=== PATIENT | male | born 1940 | race Caucasian/White ===

== ENCOUNTER 2021-12-11 07:01 | Inpatient (IN) | payer BC, MEDICARE ==
[2021-12-11] MEDS ORDERED: Fentanyl 100 MCG/2 ML VIAL ONE (07:24)
[2021-12-11 08:00] LABS: Hemoglobin 11.8 g/dL (14.0-18.0); Mean Corpuscular HGB CONC 32.1 g/dL (32.0-36.0); Mean Corpuscular Hemoglobin 36.4 pg (27.0-31.0); Mean Platelet Volume 7.1 fL (7.4-10.4); Platelet Count 422 thou/uL (130-400); RBC Distribution Width 12.5 % (11.5-14.5); Red Blood Cell (RBC) Count 3.23 mill/uL (4.70-6.10); White Blood Cell (WBC) Count 16.9 thou/uL (4.8-10.8)
[2021-12-11 08:18] LABS: ALT (SGPT) 15 U/L (8-55); AST (SGOT) 28 U/L (5-34); Albumin 3.9 g/dL (3.4-4.8); Alkaline Phosphatase 86 U/L (40-110); Anion Gap 30 mmol/L (10-20); BUN (Urea Nitrogen) 70 mg/dL (8.4-25.7); Bilirubin, Total 0.4 mg/dL (0.2-1.2); CK (CPK) 297 U/L (30-200); Calc. Creatinine Clearance 0 mL/min (70-130); Calcium 10.1 mg/dL (7.8-10.44); Carbon Dioxide 23 mmol/L (23-31); Chloride 86 mmol/L (98-107); Globulin 4.4 g/dL (2.4-3.5); Glucose 152 mg/dL (83-110); Lipase Less than 4 U/L (8-78); Potassium 4.6 mmol/L (3.5-5.1); Protein, Total 8.3 g/dL (5.8-8.1); Sodium 134 mmol/L (136-145)
[2021-12-11 08:20] LABS: Band 37 % (5-11); Lymphocytes 1 % (21-51); MDiff Complete? YES; Macrocytosis SLIGHT = 6-15 cells (100X) (0-5/hpf); Monocytes 4 % (0-10); Neutrophil 56 % (42-75); Platelet Morphology Comment Appears Increased; Polychromasia SLIGHT = 2-3 cells (100X) (0-2/hpf); Reactive Lymphocytes 2 % (0-10)
[2021-12-11] MEDS ORDERED: Cefepime 2 GM VIAL ONE (08:35)
[2021-12-11 08:42] LABS: CKMB 8.2 ng/mL (0-6.6)
[2021-12-11] MEDS ORDERED: Acetaminophen 325 MG TAB PO PRN (09:58)
[2021-12-11] MEDS ORDERED: Calcium Carbonate 500 MG ChewTAB PO PRN (09:58)
[2021-12-11] MEDS ORDERED: Morphine 2 MG/ML VIAL SLOW IVP PRN (10:02)
[2021-12-11 10:16] LABS: HBSAg Index 0.18 S/CO (0-0.99); Hep B Surf Ag Non-Reactive S/CO (NonReactive)
[2021-12-11] MEDS ORDERED: Acetaminophen 500 MG TAB ONE (10:43)
[2021-12-11] MEDS ORDERED: Iopamidol-370 76% 500 ML 1 ML ONE (10:46)
[2021-12-11 11:27] LABS: SARS-CoV-2 NAA Rapid Test Not Detected (NotDetected)
[2021-12-11 15:26] LABS: Troponin I 0.055 ng/mL (< 0.028)
[2021-12-11] MEDS: Ketorolac Tromethamine 30 MG/ML VIAL IVP SCH (15:58)
[2021-12-11] MEDS: Albumin 25% 25 GM/100 ML BOT IVPB SCH ×3 (15:58→21:32)
[2021-12-11] MEDS: Lidocaine 5% Patch TD SCH (15:58)
[2021-12-11] MEDS: Hydrocortisone Sod Succ/PF 100 mg/2 ml Vial IVP SCH ×2 (15:59→21:31)
[2021-12-11 16:13] VITALS: BMI 29.0
[2021-12-11] MEDS ORDERED: Vancomycin Diaylsis Sliding Scale (Wt 71-99) FS SCH (17:15)
[2021-12-11] MEDS ORDERED: Gabapentin 300 MG CAP PO SCH (17:15)
[2021-12-11 17:41] LABS: Troponin I 0.065 ng/mL (< 0.028)
[2021-12-11] MEDS ORDERED: Vancomycin 1 GM in Premix Bag 1 BAG IVPB SCH (21:00)
[2021-12-11] MEDS: Transdermal Patch Removal TOP SCH (23:49)
[2021-12-12 03:56] LABS: Anion Gap 28 mmol/L (10-20); BUN (Urea Nitrogen) 82 mg/dL (8.4-25.7); Calc. Creatinine Clearance 13 mL/min (70-130); Calcium 9.8 mg/dL (7.8-10.44); Carbon Dioxide 23 mmol/L (23-31); Chloride 90 mmol/L (98-107); Glucose 144 mg/dL (83-110); Potassium 4.3 mmol/L (3.5-5.1); Sodium 137 mmol/L (136-145)
[2021-12-12 04:04] LABS: Band 36 % (5-11); Hemoglobin 10.6 g/dL (14.0-18.0); Lymphocytes 8 % (21-51); MDiff Complete? YES; Mean Corpuscular HGB CONC 32.3 g/dL (32.0-36.0); Mean Corpuscular Hemoglobin 36.3 pg (27.0-31.0); Mean Platelet Volume 6.6 fL (7.4-10.4); Monocytes 2 % (0-10); Neutrophil 54 % (42-75); Platelet Count 387 thou/uL (130-400); RBC Distribution Width 12.4 % (11.5-14.5); Red Blood Cell (RBC) Count 2.92 mill/uL (4.70-6.10)
[2021-12-12] MEDS: Albumin 25% 25 GM/100 ML BOT IVPB SCH ×2 (04:53→08:45)
[2021-12-12] MEDS: Hydrocortisone Sod Succ/PF 100 mg/2 ml Vial IVP SCH ×3 (06:31→20:44)
[2021-12-12] MEDS: guaiFENesin ER 600 MG TAB PO SCH ×2 (08:45→20:42)
[2021-12-12] MEDS: Gabapentin 100 MG CAP PO SCH ×2 (08:46→20:41)
[2021-12-12] MEDS: HYDROcodone/Acetaminophen 5/325 mg Tablet PO PRN (08:47)
[2021-12-12] MEDS ORDERED: Gabapentin 300 MG CAP PO SCH (09:00)
[2021-12-12] MEDS ORDERED: Cefepime 1 GM in Sodium Chloride 0.9% 100 ML IVPB SCH (09:00)
[2021-12-12] MEDS ORDERED: Fleet Enema 133 ML BOT PR SCH (09:00)
[2021-12-12] MEDS ORDERED: Piperacillin/Tazobactam 3.375 GM in Sodium Chloride 0.9% 100 ML IVPB SCH (09:30)
[2021-12-12] MEDS: Piperacillin/Tazobactam 3.375 GM in Sodium Chloride 0.9% 100 ML IVPB SCH (09:43)
[2021-12-12] MEDS: Polyethylene Glycol 3350 17 GM Packet PO SCH (09:43)
[2021-12-12 10:39] LABS: Vancomycin, Random 21.3 ug/mL (See Comment)
[2021-12-12 10:41] LABS: ALT (SGPT) 20 U/L (8-55); AST (SGOT) 30 U/L (5-34); Albumin 4.1 g/dL (3.4-4.8); Alkaline Phosphatase 79 U/L (40-110); Bilirubin, Direct 0.3 mg/dL (0.1-0.3); Bilirubin, Total 0.5 mg/dL (0.2-1.2); Protein, Total 7.8 g/dL (5.8-8.1)
[2021-12-12] MEDS: Lidocaine 5% Patch TD SCH (12:49)
[2021-12-12] MEDS: Ketorolac Tromethamine 30 MG/ML VIAL IVP SCH (12:59)
[2021-12-12] MEDS: Acetylcysteine 10% 100 MG/ML 30 ml Vial INH SCH ×2 (14:36→21:23)
[2021-12-13] MEDS: Transdermal Patch Removal TOP SCH ×2 (01:01→22:09)
[2021-12-13] MEDS: Piperacillin/Tazobactam 3.375 GM in Sodium Chloride 0.9% 100 ML IVPB SCH ×2 (01:08→16:46)
[2021-12-13] MEDS: Acetylcysteine 10% 100 MG/ML 30 ml Vial INH SCH ×5 (02:18→23:45)
[2021-12-13] MEDS: Hydrocortisone Sod Succ/PF 100 mg/2 ml Vial IVP SCH ×3 (05:45→21:33)
[2021-12-13] MEDS: Polyethylene Glycol 3350 17 GM Packet PO SCH (10:00)
[2021-12-13] MEDS: Gabapentin 100 MG CAP PO SCH ×2 (10:01→21:32)
[2021-12-13] MEDS: guaiFENesin ER 600 MG TAB PO SCH ×2 (10:02→21:33)
[2021-12-13] MEDS: Lidocaine 5% Patch TD SCH (10:03)
[2021-12-13] MEDS ORDERED: Hydrocortisone Sod Succ/PF 100 mg/2 ml Vial IVP SCH (16:00)
[2021-12-13] MEDS: HYDROcodone/Acetaminophen 5/325 mg Tablet PO PRN (21:33)
[2021-12-14] MEDS: Piperacillin/Tazobactam 3.375 GM in Sodium Chloride 0.9% 100 ML IVPB SCH (02:32)
[2021-12-14] MEDS: Hydrocortisone Sod Succ/PF 100 mg/2 ml Vial IVP SCH (05:09)
[2021-12-14] MEDS: Polyethylene Glycol 3350 17 GM Packet PO SCH (07:03)
[2021-12-14 07:04] LABS: Hemoglobin 10.4 g/dL (14.0-18.0); Mean Corpuscular HGB CONC 32.1 g/dL (32.0-36.0); Mean Corpuscular Hemoglobin 36.2 pg (27.0-31.0); Mean Platelet Volume 6.1 fL (7.4-10.4); Platelet Count 372 thou/uL (130-400); RBC Distribution Width 12.2 % (11.5-14.5); Red Blood Cell (RBC) Count 2.89 mill/uL (4.70-6.10)
[2021-12-14 07:15] LABS: Vancomycin, Random 14.5 ug/mL (See Comment)
[2021-12-14] MEDS: Acetylcysteine 10% 100 MG/ML 30 ml Vial INH SCH ×3 (07:15→19:21)
[2021-12-14 07:19] LABS: ALT (SGPT) 26 U/L (8-55); AST (SGOT) 43 U/L (5-34); Alkaline Phosphatase 78 U/L (40-110); Anion Gap 25 mmol/L (10-20); BUN (Urea Nitrogen) 77 mg/dL (8.4-25.7); Bilirubin, Total 0.6 mg/dL (0.2-1.2); Calc. Creatinine Clearance 15 mL/min (70-130); Calcium 9.3 mg/dL (7.8-10.44); Carbon Dioxide 23 mmol/L (23-31); Chloride 87 mmol/L (98-107); Globulin 3.6 g/dL (2.4-3.5); Glucose 123 mg/dL (83-110); Potassium 4.3 mmol/L (3.5-5.1); Protein, Total 7.6 g/dL (5.8-8.1); Sodium 131 mmol/L (136-145)
[2021-12-14 08:14] LABS: Band 22 % (5-11); Lymphocytes 5 % (21-51); MDiff Complete? YES; Macrocytosis MODERATE=16-30 cells (100X) (0-5/hpf); Monocytes 3 % (0-10); Neutrophil 69 % (42-75); Platelet Morphology Comment Appears Adequate; Polychromasia SLIGHT = 2-3 cells (100X) (0-2/hpf); Reactive Lymphocytes 1 % (0-10)
[2021-12-14] MEDS: HYDROcodone/Acetaminophen 5/325 mg Tablet PO PRN ×3 (08:15→23:31)
[2021-12-14] MEDS: Midodrine HCl 5 MG TAB PO SCH (08:16)
[2021-12-14] MEDS: Gabapentin 100 MG CAP PO SCH ×2 (08:16→20:57)
[2021-12-14] MEDS: guaiFENesin ER 600 MG TAB PO SCH ×2 (08:16→20:57)
[2021-12-14] MEDS ORDERED: Doxycycline 100 MG in Sodium Chloride 0.9% 100 ML IVPB SCH ×2 (09:00→13:45)
[2021-12-14] MEDS ORDERED: predniSONE 20 MG TAB PO SCH (09:00)
[2021-12-14] MEDS ORDERED: cefTRIAXone\\ROCEPHIN 1 GM in Sodium Chloride 0.9% 100 ML IVPB SCH ×2 (09:00→16:00)
[2021-12-14] MEDS: Lidocaine 5% Patch TD SCH (09:31)
[2021-12-14] MEDS ORDERED: Pantoprazole 40 MG VIAL IVP SCH (13:30)
[2021-12-14] MEDS ORDERED: Vancomycin HCl 750 MG in Sodium Chloride 0.9% 250 ML 250 ML IVPB SCH (17:00)
[2021-12-14] MEDS: Morphine 2 MG/ML VIAL SLOW IVP PRN (20:58)
[2021-12-14] MEDS: Doxycycline 100 MG in Sodium Chloride 0.9% 100 ML IVPB SCH (20:58)
[2021-12-14] MEDS ORDERED: Doxycycline 100 MG CAP PO SCH (21:00)
[2021-12-14] MEDS: Transdermal Patch Removal TOP SCH (21:17)
[2021-12-15] MEDS: Acetylcysteine 10% 100 MG/ML 30 ml Vial INH SCH ×3 (01:40→14:22)
[2021-12-15 06:12] LABS: Hemoglobin 10.9 g/dL (14.0-18.0); Mean Corpuscular HGB CONC 31.6 g/dL (32.0-36.0); Mean Corpuscular Hemoglobin 35.5 pg (27.0-31.0); Mean Platelet Volume 6.5 fL (7.4-10.4); Platelet Count 425 thou/uL (130-400); RBC Distribution Width 12.4 % (11.5-14.5); Red Blood Cell (RBC) Count 3.07 mill/uL (4.70-6.10); White Blood Cell (WBC) Count 15.9 thou/uL (4.8-10.8)
[2021-12-15 06:28] LABS: Band 8 % (5-11); Lymphocytes 10 % (21-51); MDiff Complete? YES; Macrocytosis SLIGHT = 6-15 cells (100X) (0-5/hpf); Monocytes 3 % (0-10); Myelocyte 2 % (0-0); Neutrophil 77 % (42-75)
[2021-12-15 06:42] LABS: ALT (SGPT) 31 U/L (8-55); AST (SGOT) 43 U/L (5-34); Albumin 4.1 g/dL (3.4-4.8); Alkaline Phosphatase 86 U/L (40-110); Anion Gap 25 mmol/L (10-20); BUN (Urea Nitrogen) 72 mg/dL (8.4-25.7); Bilirubin, Total 0.5 mg/dL (0.2-1.2); Calc. Creatinine Clearance 16 mL/min (70-130); Calcium 9.6 mg/dL (7.8-10.44); Carbon Dioxide 25 mmol/L (23-31); Chloride 89 mmol/L (98-107); Globulin 3.8 g/dL (2.4-3.5); Glucose 108 mg/dL (83-110); Potassium 4.6 mmol/L (3.5-5.1); Protein, Total 7.9 g/dL (5.8-8.1); Sodium 134 mmol/L (136-145)
[2021-12-15] MEDS: Pantoprazole 40 MG VIAL IVP SCH (08:04)
[2021-12-15] MEDS: predniSONE 20 MG TAB PO SCH (08:04)
[2021-12-15] MEDS: Gabapentin 100 MG CAP PO SCH ×2 (08:04→20:26)
[2021-12-15] MEDS: Doxycycline 100 MG in Sodium Chloride 0.9% 100 ML IVPB SCH (08:04)
[2021-12-15] MEDS: guaiFENesin ER 600 MG TAB PO SCH ×2 (08:05→20:26)
[2021-12-15] MEDS: Polyethylene Glycol 3350 17 GM Packet PO SCH (08:05)
[2021-12-15] MEDS: HYDROcodone/Acetaminophen 5/325 mg Tablet PO PRN ×2 (11:47→17:31)
[2021-12-15] MEDS: Lidocaine 5% Patch TD SCH (11:47)
[2021-12-15] MEDS ORDERED: Piperacillin/Tazobactam 3.375 GM in Sodium Chloride 0.9% 100 ML IVPB SCH ×2 (14:30→14:45)
[2021-12-15] MEDS: Piperacillin/Tazobactam 3.375 GM in Sodium Chloride 0.9% 100 ML IVPB SCH (20:26)
[2021-12-15] MEDS: Transdermal Patch Removal TOP SCH (23:30)
[2021-12-16] MEDS: Morphine 2 MG/ML VIAL SLOW IVP PRN (00:53)
[2021-12-16 07:19] LABS: Hemoglobin 10.9 g/dL (14.0-18.0); Mean Corpuscular HGB CONC 33.5 g/dL (32.0-36.0); Mean Corpuscular Hemoglobin 37.8 pg (27.0-31.0); Mean Platelet Volume 6.5 fL (7.4-10.4); Platelet Count 401 thou/uL (130-400); Red Blood Cell (RBC) Count 2.89 mill/uL (4.70-6.10); White Blood Cell (WBC) Count 18.7 thou/uL (4.8-10.8)
[2021-12-16 07:41] LABS: ALT (SGPT) 27 U/L (8-55); AST (SGOT) 32 U/L (5-34); Albumin 3.9 g/dL (3.4-4.8); Alkaline Phosphatase 84 U/L (40-110); Anion Gap 27 mmol/L (10-20); BUN (Urea Nitrogen) 97 mg/dL (8.4-25.7); Bilirubin, Total 0.6 mg/dL (0.2-1.2); Calc. Creatinine Clearance 13 mL/min (70-130); Calcium 9.3 mg/dL (7.8-10.44); Carbon Dioxide 23 mmol/L (23-31); Chloride 88 mmol/L (98-107); Globulin 3.5 g/dL (2.4-3.5); Glucose 103 mg/dL (83-110); Potassium 4.7 mmol/L (3.5-5.1); Protein, Total 7.4 g/dL (5.8-8.1); Sodium 133 mmol/L (136-145)
[2021-12-16 08:06] LABS: Band 11 % (5-11); Lymphocytes 10 % (21-51); MDiff Complete? YES; Metamyelocyte 3 % (0-0); Monocytes 7 % (0-10); Myelocyte 1 % (0-0); Neutrophil 68 % (42-75); Platelet Morphology Comment Appears Increased; RBC Morphology Normal
[2021-12-16] MEDS ORDERED: Morphine 2 MG/ML VIAL SLOW IVP PRN (08:19)
[2021-12-16] MEDS ORDERED: Morphine 4 MG/ML VIAL SLOW IVP PRN (08:23)
[2021-12-16] MEDS ORDERED: Fleet Enema 133 ML BOT PR SCH (09:45)
[2021-12-16] MEDS ORDERED: Magnesium Citrate 300 ML BOT PO SCH (09:45)
[2021-12-16] MEDS: Piperacillin/Tazobactam 3.375 GM in Sodium Chloride 0.9% 100 ML IVPB SCH ×2 (10:12→20:25)
[2021-12-16] MEDS: guaiFENesin ER 600 MG TAB PO SCH ×2 (10:12→20:25)
[2021-12-16] MEDS: Gabapentin 100 MG CAP PO SCH ×2 (10:12→20:25)
[2021-12-16] MEDS ORDERED: Albumin 25% 100 ML ONE (11:35)
[2021-12-16] MEDS: Midodrine HCl 5 MG TAB PO SCH (11:39)
[2021-12-16] MEDS: Lidocaine 5% Patch TD SCH (14:31)
[2021-12-16] MEDS: predniSONE 20 MG TAB PO SCH (14:32)
[2021-12-16] MEDS: Pantoprazole 40 MG VIAL IVP SCH (14:32)
[2021-12-16] MEDS: Polyethylene Glycol 3350 17 GM Packet PO SCH ×2 (14:45→19:33)
[2021-12-16] MEDS: Transdermal Patch Removal TOP SCH (23:57)
[2021-12-17 06:51] LABS: ALT (SGPT) 27 U/L (8-55); AST (SGOT) 29 U/L (5-34); Albumin 4.1 g/dL (3.4-4.8); Alkaline Phosphatase 88 U/L (40-110); Anion Gap 26 mmol/L (10-20); BUN (Urea Nitrogen) 69 mg/dL (8.4-25.7); Bilirubin, Total 0.7 mg/dL (0.2-1.2); Calc. Creatinine Clearance 18 mL/min (70-130); Calcium 9.5 mg/dL (7.8-10.44); Carbon Dioxide 23 mmol/L (23-31); Chloride 91 mmol/L (98-107); Globulin 3.9 g/dL (2.4-3.5); Glucose 160 mg/dL (83-110); Potassium 4.8 mmol/L (3.5-5.1); Sodium 135 mmol/L (136-145)
[2021-12-17 06:54] LABS: Band 11 % (5-11); Hemoglobin 11.1 g/dL (14.0-18.0); Hypochromia SLIGHT = 6-15 cells (100X) (0-5/hpf); Lymphocytes 13 % (21-51); MDiff Complete? YES; Macrocytosis SLIGHT = 6-15 cells (100X) (0-5/hpf); Mean Corpuscular HGB CONC 31.8 g/dL (32.0-36.0); Mean Corpuscular Hemoglobin 35.9 pg (27.0-31.0); Mean Platelet Volume 6.7 fL (7.4-10.4); Monocytes 2 % (0-10); Neutrophil 73 % (42-75); Platelet Count 474 thou/uL (130-400); Platelet Morphology Comment Appears Increased; RBC Distribution Width 12.5 % (11.5-14.5); Reactive Lymphocytes 1 % (0-10); Red Blood Cell (RBC) Count 3.09 mill/uL (4.70-6.10); White Blood Cell (WBC) Count 21.6 thou/uL (4.8-10.8)
[2021-12-17] MEDS: predniSONE 20 MG TAB PO SCH (08:52)
[2021-12-17] MEDS: Piperacillin/Tazobactam 3.375 GM in Sodium Chloride 0.9% 100 ML IVPB SCH (08:52)
[2021-12-17] MEDS: Gabapentin 100 MG CAP PO SCH (08:53)
[2021-12-17] MEDS: Polyethylene Glycol 3350 17 GM Packet PO SCH (08:53)
[2021-12-17] MEDS: guaiFENesin ER 600 MG TAB PO SCH (08:53)
[2021-12-17] MEDS: Pantoprazole 40 MG VIAL IVP SCH (08:53)
[2021-12-17 09:04] VITALS: BP 125/67; TEMP 98.8
[2021-12-17 11:17] LABS: % Free PSA 3.6 % (.); Total PSA 13.2 ng/mL (0.0-4.0)
[2021-12-17] MEDS: Lidocaine 5% Patch TD SCH (11:58)
== END 2021-12-17 16:57 | DRG 871 ==
LOC: ERS 07:01 → IMCU/EMU 10:02 → T4-A 12-13 20:44
PROVIDERS: ADMIT Family Medicine; ATTEND Family Medicine
PROC: 3E03329 Introduction of Other Anti-infective into Peripheral Vein, Percutaneous Approach (ICD-10-PCS; principal; 2021-12-11)
PROC: 5A1D70Z Performance of Urinary Filtration, Intermittent, Less than 6 Hours Per Day (ICD-10-PCS; 2021-12-11)
DX: A41.9 Sepsis, unspecified organism (principal); N18.6 End stage renal disease; J96.01 Acute respiratory failure with hypoxia; I13.2 Hypertensive heart and chronic kidney disease with heart failure and with stage 5 chronic kidney disease, or end stage renal disease; J90 Pleural effusion, not elsewhere classified; K81.0 Acute cholecystitis; I50.32 Chronic diastolic (congestive) heart failure; Z20.822 Contact with and (suspected) exposure to COVID-19; K59.00 Constipation, unspecified; K81.1 Chronic cholecystitis; D63.1 Anemia in chronic kidney disease; Z99.2 Dependence on renal dialysis; Z88.6 Allergy status to analgesic agent; Z88.8 Allergy status to other drugs, medicaments and biological substances; Z79.899 Other long term (current) drug therapy; Z98.890 Other specified postprocedural states
CPT/HCPCS: 36415; 71045; 71275; 72072; 74019; 74177; 78227; 78264; 80048; 80053; 80076; 80202; 82550; 82553; 83605; 83690; 83880; 84145; 84153; 84154; 84484; 85025; 85379; 85652; 86140; 87040; 87070; 87205; 87340; 87804; 90935; 90945; 93005; 93306; 96365; 96375; A9537; A9541; C9113; G0257; J0692; J0696; J1720; J1885; J1956; J2270; J2543; J3010; J3370; J3490; J7030; J7512; J7608; J7620; P9047; Q9967; U0002

== ENCOUNTER 2021-12-20 16:40 | Inpatient (IN) | payer MEDICARE ==
[2021-12-20 18:16] LABS: Hemoglobin 9.4 g/dL (14.0-18.0); Mean Corpuscular HGB CONC 31.7 g/dL (32.0-36.0); Mean Platelet Volume 6.6 fL (7.4-10.4); Platelet Count 456 thou/uL (130-400); RBC Distribution Width 12.2 % (11.5-14.5); White Blood Cell (WBC) Count 23.1 thou/uL (4.8-10.8)
[2021-12-20 18:31] LABS: Band 7 % (5-11); Lymphocytes 8 % (21-51); MDiff Complete? YES; Macrocytosis SLIGHT = 6-15 cells (100X) (0-5/hpf); Monocytes 3 % (0-10); Myelocyte 2 % (0-0); Neutrophil 79 % (42-75); Platelet Morphology Comment Appears Increased; Polychromasia MODERATE = 3-4 cells (100X) (0-2/hpf); Reactive Lymphocytes 1 % (0-10)
[2021-12-20 18:39] LABS: ALT (SGPT) 19 U/L (8-55); AST (SGOT) 14 U/L (5-34); Albumin 3.7 g/dL (3.4-4.8); Alkaline Phosphatase 100 U/L (40-110); Anion Gap 21 mmol/L (10-20); BUN (Urea Nitrogen) 83 mg/dL (8.4-25.7); Bilirubin, Total 0.6 mg/dL (0.2-1.2); Calc. Creatinine Clearance 0 mL/min (70-130); Calcium 9.1 mg/dL (7.8-10.44); Carbon Dioxide 26 mmol/L (23-31); Chloride 96 mmol/L (98-107); Globulin 3.7 g/dL (2.4-3.5); Glucose 147 mg/dL (83-110); Potassium 3.9 mmol/L (3.5-5.1); Protein, Total 7.4 g/dL (5.8-8.1); Sodium 139 mmol/L (136-145)
[2021-12-20 18:57] LABS: CKMB 6.1 ng/mL (0-6.6)
[2021-12-20] MEDS ORDERED: Cefepime 2 GM VIAL ONE (19:14)
[2021-12-20] MEDS ORDERED: Azithromycin 500 MG VIAL ONE ×2 (19:57→20:09)
[2021-12-20 21:58] LABS: SARS-CoV-2 NAA Rapid Test Not Detected (NotDetected)
[2021-12-20] MEDS ORDERED: Acetaminophen 325 MG TAB PO PRN (23:30)
[2021-12-20] MEDS ORDERED: Ondansetron ODT 4 MG TAB SL PRN (23:30)
[2021-12-20] MEDS ORDERED: Ondansetron PF 4 MG/2 ML Vial IVP PRN (23:30)
[2021-12-21 05:01] LABS: Band 7 % (5-11); Eosinophils 1 % (0-10); Hemoglobin 9.3 g/dL (14.0-18.0); Lymphocytes 15 % (21-51); MDiff Complete? YES; Macrocytosis SLIGHT = 6-15 cells (100X) (0-5/hpf); Mean Corpuscular HGB CONC 32.3 g/dL (32.0-36.0); Mean Corpuscular Hemoglobin 36.4 pg (27.0-31.0); Mean Platelet Volume 6.4 fL (7.4-10.4); Monocytes 11 % (0-10); Neutrophil 66 % (42-75); Platelet Count 411 thou/uL (130-400); Platelet Morphology Comment Appears Adequate; RBC Distribution Width 12.3 % (11.5-14.5); Red Blood Cell (RBC) Count 2.56 mill/uL (4.70-6.10)
[2021-12-21 05:10] LABS: Anion Gap 16 mmol/L (10-20); BUN (Urea Nitrogen) 30 mg/dL (8.4-25.7); Calc. Creatinine Clearance 0 mL/min (70-130); Calcium 9.2 mg/dL (7.8-10.44); Carbon Dioxide 31 mmol/L (23-31); Chloride 97 mmol/L (98-107); Glucose 132 mg/dL (83-110); Sodium 141 mmol/L (136-145)
[2021-12-21 05:37] VITALS: BMI 27.8
[2021-12-21] MEDS ORDERED: Heparin 5,000 UNITS/ML VIAL SC SCH (09:00)
[2021-12-21] MEDS ORDERED: Sodium Chloride 0.9% 250 ML 250 ML IVPB SCH (09:45)
[2021-12-21] MEDS ORDERED: Potassium Chloride 20 MEQ in Premix Bag 1 BAG IVPB SCH (10:00)
[2021-12-21 10:06] LABS: ALT (SGPT) 17 U/L (8-55); AST (SGOT) 18 U/L (5-34); Albumin 3.4 g/dL (3.4-4.8); Alkaline Phosphatase 75 U/L (40-110); Bilirubin, Direct 0.3 mg/dL (0.1-0.3); Bilirubin, Total 0.6 mg/dL (0.2-1.2)
[2021-12-21] MEDS ORDERED: Vancomycin 1 GM in Premix Bag 1 BAG IVPB SCH (10:45)
[2021-12-21] MEDS ORDERED: Dextrose 5 % And 0.9 % NaCl 1,000 ML IV SCH (10:45)
[2021-12-21 11:15] LABS: Actual Bicarbonate (HCO3a) 25.5 mEq/L (22-28); Base Excess (BEa) 2.1 mEq/L (-2.0 to +3.0); Calcium, Ionized (arterial) 1.12 mmol/L (1.12-1.30); Carboxyhemoglobin (COHb) 2.8 gm% (0.0-3.0); Hemoglobin (Hb) 9.2 g/dL (14.0-18.0); O2 Tension (PaO2), arterial 68.7 mmHg (> 60.0); Potassium - ABG Lab 2.96 mmol/L (3.70-5.30); pH, Arterial 7.48 (7.35-7.45)
[2021-12-21 11:17] LABS: Puncture Site RRA
[2021-12-21] MEDS ORDERED: Sodium Chloride 0.9% 250 ML IV SCH (11:30)
[2021-12-21 11:44] LABS: SARS-CoV-2 PCR by NAA Not Detected (NotDetected)
[2021-12-21] MEDS: Polyethylene Glycol 3350 17 GM Packet PO SCH (11:55)
[2021-12-21] MEDS: Senokot S 8.6-50 MG TAB PO SCH ×2 (11:56→21:39)
[2021-12-21] MEDS ORDERED: Cefepime 1 GM in Sodium Chloride 0.9% 100 ML IVPB SCH (12:00)
[2021-12-21] MEDS: Albumin 25% 25 GM/100 ML BOT IVPB SCH ×3 (12:07→23:17)
[2021-12-21] MEDS ORDERED: Cefepime 0.5 GM, Admixture Fee 1 EACH in Sodium Chloride 0.9% 100 ML IVPB SCH (13:00)
[2021-12-21] MEDS ORDERED: Vancomycin HCl 2 GM, Admixture Fee 1 EACH in Sodium Chloride 0.9% 500 ML IVPB SCH (14:00)
[2021-12-21] MEDS ORDERED: Senokot S 8.6-50 MG TAB PO SCH (21:00)
[2021-12-22] MEDS: Acetaminophen 325 MG TAB PO PRN ×2 (04:03→08:53)
[2021-12-22] MEDS: Albumin 25% 25 GM/100 ML BOT IVPB SCH ×2 (05:37→12:32)
[2021-12-22 07:35] LABS: Hemoglobin 8.8 g/dL (14.0-18.0); Mean Corpuscular HGB CONC 31.7 g/dL (32.0-36.0); Mean Corpuscular Hemoglobin 36.1 pg (27.0-31.0); Mean Platelet Volume 6.4 fL (7.4-10.4); Platelet Count 413 thou/uL (130-400); RBC Distribution Width 12.3 % (11.5-14.5); Red Blood Cell (RBC) Count 2.45 mill/uL (4.70-6.10); White Blood Cell (WBC) Count 18.4 thou/uL (4.8-10.8)
[2021-12-22 08:06] LABS: Anion Gap 16 mmol/L (10-20); BUN (Urea Nitrogen) 50 mg/dL (8.4-25.7); Calc. Creatinine Clearance 17 mL/min (70-130); Calcium 8.8 mg/dL (7.8-10.44); Carbon Dioxide 27 mmol/L (23-31); Chloride 102 mmol/L (98-107); Glucose 170 mg/dL (83-110); Potassium 2.8 mmol/L (3.5-5.1); Sodium 142 mmol/L (136-145)
[2021-12-22] MEDS ORDERED: Potassium Chloride 20 MEQ TAB PO SCH (08:15)
[2021-12-22 08:21] LABS: Band 3 % (5-11); Lymphocytes 12 % (21-51); MDiff Complete? YES; Monocytes 3 % (0-10); Neutrophil 82 % (42-75); Platelet Morphology Comment Appears Increased; Polychromasia SLIGHT = 2-3 cells (100X) (0-2/hpf)
[2021-12-22] MEDS: Senokot S 8.6-50 MG TAB PO SCH ×2 (08:54→21:01)
[2021-12-22] MEDS: Polyethylene Glycol 3350 17 GM Packet PO SCH (08:54)
[2021-12-22] MEDS: Potassium Chloride 20 MEQ in Premix Bag 1 BAG IVPB SCH ×2 (08:55→12:23)
[2021-12-22] MEDS ORDERED: Cefepime 1 GM in Sodium Chloride 0.9% 100 ML IVPB SCH (13:00)
[2021-12-22 15:44] LABS: Anion Gap 17 mmol/L (10-20); BUN (Urea Nitrogen) 16 mg/dL (8.4-25.7); Calc. Creatinine Clearance 42 mL/min (70-130); Calcium 8.9 mg/dL (7.8-10.44); Carbon Dioxide 27 mmol/L (23-31); Chloride 100 mmol/L (98-107); Glucose 128 mg/dL (83-110); Potassium 3.5 mmol/L (3.5-5.1); Sodium 140 mmol/L (136-145)
[2021-12-22] MEDS: HYDROcodone/Acetaminophen 5/325 mg Tablet PO PRN (21:00)
[2021-12-23 04:33] LABS: Hemoglobin 8.3 g/dL (14.0-18.0); Mean Corpuscular Hemoglobin 37.3 pg (27.0-31.0); Mean Platelet Volume 6.2 fL (7.4-10.4); Platelet Count 361 thou/uL (130-400); RBC Distribution Width 12.8 % (11.5-14.5); Red Blood Cell (RBC) Count 2.23 mill/uL (4.70-6.10); White Blood Cell (WBC) Count 13.7 thou/uL (4.8-10.8)
[2021-12-23 04:53] LABS: Anion Gap 15 mmol/L (10-20); BUN (Urea Nitrogen) 27 mg/dL (8.4-25.7); Calc. Creatinine Clearance 25 mL/min (70-130); Calcium 8.7 mg/dL (7.8-10.44); Carbon Dioxide 27 mmol/L (23-31); Chloride 103 mmol/L (98-107); Glucose 107 mg/dL (83-110); Potassium 3.1 mmol/L (3.5-5.1); Sodium 142 mmol/L (136-145)
[2021-12-23 07:15] LABS: Vancomycin, Random 20.6 ug/mL (See Comment)
[2021-12-23] MEDS ORDERED: Potassium Bicarbonate/Cit Ac 20 MEQ TAB PO SCH ×2 (08:30→10:30)
[2021-12-23] MEDS: Polyethylene Glycol 3350 17 GM Packet PO SCH (08:49)
[2021-12-23] MEDS: Senokot S 8.6-50 MG TAB PO SCH ×2 (08:49→21:00)
[2021-12-23] MEDS: HYDROcodone/Acetaminophen 5/325 mg Tablet PO PRN (14:14)
[2021-12-23] MEDS ORDERED: Potassium Chloride 20 MEQ TAB PO SCH (15:45)
[2021-12-23] MEDS ORDERED: Cefepime 1 GM in Sodium Chloride 0.9% 100 ML IVPB SCH (16:00)
[2021-12-23] MEDS ORDERED: Vancomycin Diaylsis Sliding Scale (Wt 71-99) FS SCH (17:00)
[2021-12-23 20:07] VITALS: BP 116/49; TEMP 98.1
== END 2021-12-23 21:00 | DRG 291 ==
LOC: ERS 16:40 → ERHOLD 19:43 → OBSVTOIN 23:32 → 2NO 12-21 02:03 → IMCU/EMU 12-21 09:43 → 2NO 12-22 17:00
PROVIDERS: ADMIT Internal Medicine; ATTEND Internal Medicine
PROC: 5A1D70Z Performance of Urinary Filtration, Intermittent, Less than 6 Hours Per Day (ICD-10-PCS; principal; 2021-12-20)
DX: I13.2 Hypertensive heart and chronic kidney disease with heart failure and with stage 5 chronic kidney disease, or end stage renal disease (principal); Z20.822 Contact with and (suspected) exposure to COVID-19; I50.33 Acute on chronic diastolic (congestive) heart failure; J96.01 Acute respiratory failure with hypoxia; G92.8 Other toxic encephalopathy; N18.6 End stage renal disease; D63.1 Anemia in chronic kidney disease; K59.00 Constipation, unspecified; D72.829 Elevated white blood cell count, unspecified; E87.6 Hypokalemia; G89.29 Other chronic pain; R29.6 Repeated falls; M54.16 Radiculopathy, lumbar region; Z99.2 Dependence on renal dialysis; Z88.8 Allergy status to other drugs, medicaments and biological substances; Z79.899 Other long term (current) drug therapy; Z79.52 Long term (current) use of systemic steroids; Z98.890 Other specified postprocedural states; Z82.49 Family history of ischemic heart disease and other diseases of the circulatory system; Z87.891 Personal history of nicotine dependence; Z91.81 History of falling
CPT/HCPCS: 36415; 36416; 36600; 70450; 71045; 74176; 80048; 80076; 80202; 82140; 82533; 82553; 82805; 83880; 84443; 84484; 85025; 85027; 86140; 87040; 90935; 93005; 95712; 95819; 95957; 96374; 96375; G0257; J0456; J0692; J3370; J3480; J3490; J7030; J7042; J7050; J7620; P9047; U0002; U0003; U0005

== ENCOUNTER 2021-12-31 19:16 | Inpatient (IN) | payer MEDICARE ==
[2021-12-31 19:48] LABS: #Eosinphils 0.1 thou/uL (0.0-0.7); #Lymphocytes 1.4 thou/uL (1.20-3.40); #Monocytes 0.6 thou/uL (0.11-0.59); #Neutrophils 14.2 thou/uL (1.40-6.50); %Basophils 0.1 % (0.0-1.0); %Eosinophils 0.4 % (0.0-10.0); %Lymphocytes 8.8 % (21.0-51.0); %Monocytes 3.7 % (0.0-10.0); %Neutrophils 87.1 % (42.0-75.0); Hemoglobin 8.6 g/dL (14.0-18.0); Mean Corpuscular HGB CONC 31.7 g/dL (32.0-36.0); Mean Corpuscular Hemoglobin 35.5 pg (27.0-31.0); Mean Platelet Volume 6.3 fL (7.4-10.4); Platelet Count 590 thou/uL (130-400); RBC Distribution Width 12.6 % (11.5-14.5); Red Blood Cell (RBC) Count 2.41 mill/uL (4.70-6.10); White Blood Cell (WBC) Count 16.3 thou/uL (4.8-10.8)
[2021-12-31] MEDS ORDERED: VANCOMYCIN 2 GRAM/500 ML BAG 2 GM in Premix Bag 1 BAG IVPB SCH (20:00)
[2021-12-31] MEDS ORDERED: Cefepime 2 GM in Sodium Chloride 0.9% 100 ML IVPB SCH (20:00)
[2021-12-31 20:10] LABS: ALT (SGPT) 11 U/L (8-55); AST (SGOT) 11 U/L (5-34); Albumin 4.1 g/dL (3.4-4.8); Alkaline Phosphatase 95 U/L (40-110); Anion Gap 20 mmol/L (10-20); BUN (Urea Nitrogen) 59 mg/dL (8.4-25.7); Bilirubin, Total 0.6 mg/dL (0.2-1.2); Calc. Creatinine Clearance 0 mL/min (70-130); Calcium 9.8 mg/dL (7.8-10.44); Carbon Dioxide 25 mmol/L (23-31); Chloride 96 mmol/L (98-107); Globulin 5.3 g/dL (2.4-3.5); Glucose 131 mg/dL (83-110); Potassium 4.2 mmol/L (3.5-5.1); Protein, Total 9.4 g/dL (5.8-8.1); Sodium 137 mmol/L (136-145)
[2021-12-31 20:30] LABS: CKMB 3.9 ng/mL (0-6.6)
[2021-12-31 22:06] LABS: SARS-CoV-2 NAA Rapid Test Not Detected (NotDetected)
[2021-12-31] MEDS ORDERED: Acetaminophen 325 MG TAB PO PRN (22:30)
[2021-12-31] MEDS ORDERED: Ondansetron ODT 4 MG TAB SL PRN (22:30)
[2021-12-31] MEDS ORDERED: Ondansetron PF 4 MG/2 ML Vial IVP PRN (22:30)
[2021-12-31] MEDS ORDERED: Acetaminophen 650 MG Suppository PR PRN (23:26)
[2021-12-31] MEDS ORDERED: Norepinephrine 8 MG/0.9% NS 250 ML IVPB SCH (23:45)
[2021-12-31] MEDS ORDERED: Midodrine HCl 5 MG TAB PO SCH (23:59)
[2022-01-01] MEDS ORDERED: Norepinephrine 8 MG/0.9% NS 250 ML ONE (00:10)
[2022-01-01] MEDS: Lidocaine 5% Patch TD SCH (01:27)
[2022-01-01 03:41] LABS: #Eosinphils 0.2 thou/uL (0.0-0.7); #Lymphocytes 1.8 thou/uL (1.20-3.40); #Monocytes 0.6 thou/uL (0.11-0.59); #Neutrophils 10.3 thou/uL (1.40-6.50); %Basophils 0.1 % (0.0-1.0); %Eosinophils 1.3 % (0.0-10.0); %Lymphocytes 13.9 % (21.0-51.0); %Monocytes 4.7 % (0.0-10.0); %Neutrophils 79.9 % (42.0-75.0); Hemoglobin 7.9 g/dL (14.0-18.0); Mean Corpuscular HGB CONC 31.7 g/dL (32.0-36.0); Mean Corpuscular Hemoglobin 36.1 pg (27.0-31.0); Mean Platelet Volume 6.3 fL (7.4-10.4); Platelet Count 555 thou/uL (130-400); RBC Distribution Width 12.5 % (11.5-14.5); Red Blood Cell (RBC) Count 2.18 mill/uL (4.70-6.10); White Blood Cell (WBC) Count 12.9 thou/uL (4.8-10.8)
[2022-01-01 04:00] LABS: Anion Gap 18 mmol/L (10-20); BUN (Urea Nitrogen) 63 mg/dL (8.4-25.7); Calc. Creatinine Clearance 16 mL/min (70-130); Calcium 8.8 mg/dL (7.8-10.44); Carbon Dioxide 21 mmol/L (23-31); Chloride 103 mmol/L (98-107); Glucose 97 mg/dL (83-110); Potassium 3.7 mmol/L (3.5-5.1); Sodium 138 mmol/L (136-145)
[2022-01-01] MEDS ORDERED: Meropenem 1 GM in Sodium Chloride 0.9% 100 ML IVPB SCH ×2 (05:12→06:00)
[2022-01-01] MEDS ORDERED: Vancomycin Diaylsis Sliding Scale (Wt 71-99) FS SCH (05:30)
[2022-01-01] MEDS: Midodrine HCl 5 MG TAB PO SCH ×3 (07:44→20:35)
[2022-01-01] MEDS ORDERED: VANCOMYCIN 1.25 GM/250 ML BAG IVPB SCH (08:00)
[2022-01-01 09:33] LABS: Actual Bicarbonate (HCO3v) 19 mEq/L (22-28); Base Excess -6.7 mEq/L (-2.0 to +3.0); Calcium, Ionized (venous) 1.15 mmol/L (1.16-1.32); Chloride (VBG) 104 mmol/L (98-106); Hemoglobin (Hb) 7.9 g/dL (12.6-17.4); Potassium (VBG) 3.42 mmol/L (3.70-5.30); Sodium 137.3 mmol/L (133-146)
[2022-01-01] MEDS: Heparin 5,000 UNITS/ML VIAL SC SCH ×3 (09:39→20:35)
[2022-01-01] MEDS ORDERED: Lactated Ringer's 500 ML IV SCH (10:00)
[2022-01-01] MEDS: HYDROcodone/Acetaminophen 5/325 mg Tablet PO PRN (13:14)
[2022-01-01] MEDS: Meropenem 500 MG in Sodium Chloride 0.9% 100 ML IVPB SCH (14:23)
[2022-01-01] MEDS: Transdermal Patch Removal TOP SCH (14:51)
[2022-01-01] MEDS ORDERED: Polyethylene Glycol 3350 17 GM Packet PO PRN (17:50)
[2022-01-01] MEDS: Senokot S 8.6-50 MG TAB PO SCH (20:35)
[2022-01-02] MEDS: Lidocaine 5% Patch TD SCH (02:15)
[2022-01-02 03:57] LABS: #Eosinphils 0.2 thou/uL (0.0-0.7); #Lymphocytes 0.8 thou/uL (1.20-3.40); #Monocytes 0.4 thou/uL (0.11-0.59); #Neutrophils 7.3 thou/uL (1.40-6.50); %Basophils 0.3 % (0.0-1.0); %Eosinophils 2.2 % (0.0-10.0); %Lymphocytes 9.1 % (21.0-51.0); %Neutrophils 83.4 % (42.0-75.0); Hemoglobin 7.7 g/dL (14.0-18.0); Mean Corpuscular HGB CONC 32.1 g/dL (32.0-36.0); Mean Corpuscular Hemoglobin 35.8 pg (27.0-31.0); Platelet Count 490 thou/uL (130-400); RBC Distribution Width 12.6 % (11.5-14.5); Red Blood Cell (RBC) Count 2.15 mill/uL (4.70-6.10); White Blood Cell (WBC) Count 8.7 thou/uL (4.8-10.8)
[2022-01-02 04:28] LABS: Anion Gap 18 mmol/L (10-20); BUN (Urea Nitrogen) 82 mg/dL (8.4-25.7); Calc. Creatinine Clearance 13 mL/min (70-130); Calcium 8.5 mg/dL (7.8-10.44); Carbon Dioxide 22 mmol/L (23-31); Chloride 103 mmol/L (98-107); Glucose 117 mg/dL (83-110); Potassium 3.6 mmol/L (3.5-5.1); Sodium 139 mmol/L (136-145)
[2022-01-02] MEDS: Midodrine HCl 5 MG TAB PO SCH ×3 (08:26→22:20)
[2022-01-02] MEDS: Calcium Acetate 667 MG CAP PO SCH ×4 (08:27→19:38)
[2022-01-02] MEDS: Heparin 5,000 UNITS/ML VIAL SC SCH ×3 (08:27→21:20)
[2022-01-02] MEDS: Senokot S 8.6-50 MG TAB PO SCH (08:27)
[2022-01-02] MEDS: Folic Acid 1 MG TAB PO SCH (08:27)
[2022-01-02] MEDS: Lactated Ringer's 1,000 ML IV SCH (11:29)
[2022-01-02] MEDS: Meropenem 500 MG in Sodium Chloride 0.9% 100 ML IVPB SCH (14:25)
[2022-01-02] MEDS: Transdermal Patch Removal TOP SCH (14:25)
[2022-01-02 22:02] LABS: #Basophils 0.1 thou/uL (0.0-0.2); #Eosinphils 0.2 thou/uL (0.0-0.7); #Lymphocytes 1.2 thou/uL (1.20-3.40); #Monocytes 0.5 thou/uL (0.11-0.59); #Neutrophils 7.1 thou/uL (1.40-6.50); %Basophils 0.6 % (0.0-1.0); %Eosinophils 1.7 % (0.0-10.0); %Lymphocytes 12.9 % (21.0-51.0); %Monocytes 5.8 % (0.0-10.0); %Neutrophils 79.1 % (42.0-75.0); Hemoglobin 8.4 g/dL (14.0-18.0); Mean Corpuscular HGB CONC 32.4 g/dL (32.0-36.0); Mean Corpuscular Hemoglobin 36.6 pg (27.0-31.0); Mean Platelet Volume 6.2 fL (7.4-10.4); Platelet Count 530 thou/uL (130-400); RBC Distribution Width 12.8 % (11.5-14.5)
[2022-01-02 22:23] LABS: Anion Gap 15 mmol/L (10-20); BUN (Urea Nitrogen) 35 mg/dL (8.4-25.7); Calc. Creatinine Clearance 23 mL/min (70-130); Calcium 8.5 mg/dL (7.8-10.44); Carbon Dioxide 25 mmol/L (23-31); Chloride 101 mmol/L (98-107); Glucose 131 mg/dL (83-110); Magnesium 1.9 mg/dL (1.6-2.6); Potassium 3.5 mmol/L (3.5-5.1); Sodium 137 mmol/L (136-145)
[2022-01-03] MEDS: Lactated Ringer's 1,000 ML IV SCH (01:12)
[2022-01-03] MEDS: Lidocaine 5% Patch TD SCH (02:21)
[2022-01-03 04:30] LABS: Anion Gap 15 mmol/L (10-20); BUN (Urea Nitrogen) 35 mg/dL (8.4-25.7); Calc. Creatinine Clearance 22 mL/min (70-130); Calcium 8.4 mg/dL (7.8-10.44); Carbon Dioxide 25 mmol/L (23-31); Chloride 101 mmol/L (98-107); Glucose 107 mg/dL (83-110); Sodium 137 mmol/L (136-145)
[2022-01-03] MEDS: Midodrine HCl 5 MG TAB PO SCH ×3 (07:40→21:26)
[2022-01-03] MEDS: Folic Acid 1 MG TAB PO SCH (07:40)
[2022-01-03] MEDS: Calcium Acetate 667 MG CAP PO SCH ×3 (07:41→17:52)
[2022-01-03] MEDS: HYDROcodone/Acetaminophen 5/325 mg Tablet PO PRN ×2 (07:41→15:32)
[2022-01-03] MEDS: Heparin 5,000 UNITS/ML VIAL SC SCH ×3 (09:48→21:26)
[2022-01-03] MEDS: Meropenem 500 MG in Sodium Chloride 0.9% 100 ML IVPB SCH (15:07)
[2022-01-03] MEDS: Transdermal Patch Removal TOP SCH (15:39)
[2022-01-04] MEDS: Lidocaine 5% Patch TD SCH (01:35)
[2022-01-04] MEDS: HYDROcodone/Acetaminophen 5/325 mg Tablet PO PRN (02:36)
[2022-01-04] MEDS: Heparin 5,000 UNITS/ML VIAL SC SCH ×3 (08:16→21:29)
[2022-01-04] MEDS: Calcium Acetate 667 MG CAP PO SCH ×3 (08:17→16:35)
[2022-01-04] MEDS: Midodrine HCl 5 MG TAB PO SCH ×3 (08:17→21:30)
[2022-01-04] MEDS: Folic Acid 1 MG TAB PO SCH (08:18)
[2022-01-04] MEDS: Meropenem 500 MG in Sodium Chloride 0.9% 100 ML IVPB SCH (13:47)
[2022-01-04] MEDS: Transdermal Patch Removal TOP SCH (13:48)
[2022-01-05] MEDS: Lidocaine 5% Patch TD SCH (02:36)
[2022-01-05] MEDS: Calcium Acetate 667 MG CAP PO SCH ×3 (09:01→16:11)
[2022-01-05] MEDS: Heparin 5,000 UNITS/ML VIAL SC SCH ×3 (09:01→20:23)
[2022-01-05] MEDS: Folic Acid 1 MG TAB PO SCH (09:02)
[2022-01-05] MEDS: Midodrine HCl 5 MG TAB PO SCH ×3 (10:12→20:24)
[2022-01-05] MEDS: HYDROcodone/Acetaminophen 5/325 mg Tablet PO PRN ×3 (10:12→20:24)
[2022-01-05] MEDS: Transdermal Patch Removal TOP SCH (16:12)
[2022-01-05] MEDS: Meropenem 500 MG in Sodium Chloride 0.9% 100 ML IVPB SCH (16:15)
[2022-01-06] MEDS: Lidocaine 5% Patch TD SCH (01:26)
[2022-01-06] MEDS: Midodrine HCl 5 MG TAB PO SCH ×2 (07:12→13:27)
[2022-01-06] MEDS: Calcium Acetate 667 MG CAP PO SCH ×3 (07:12→17:42)
[2022-01-06] MEDS: Folic Acid 1 MG TAB PO SCH (07:13)
[2022-01-06] MEDS: Heparin 5,000 UNITS/ML VIAL SC SCH ×3 (07:13→20:41)
[2022-01-06] MEDS: Meropenem 500 MG in Sodium Chloride 0.9% 100 ML IVPB SCH (13:26)
[2022-01-06] MEDS: Transdermal Patch Removal TOP SCH (20:42)
[2022-01-07] MEDS: Midodrine HCl 5 MG TAB PO SCH ×4 (01:08→21:12)
[2022-01-07] MEDS: Lidocaine 5% Patch TD SCH (01:22)
[2022-01-07] MEDS: Heparin 5,000 UNITS/ML VIAL SC SCH ×3 (09:00→21:13)
[2022-01-07] MEDS: Calcium Acetate 667 MG CAP PO SCH ×3 (09:00→17:44)
[2022-01-07] MEDS: Folic Acid 1 MG TAB PO SCH (09:00)
[2022-01-07] MEDS: Meropenem 500 MG in Sodium Chloride 0.9% 100 ML IVPB SCH (14:12)
[2022-01-07] MEDS: Transdermal Patch Removal TOP SCH (14:13)
[2022-01-07] MEDS: HYDROcodone/Acetaminophen 5/325 mg Tablet PO PRN (21:12)
[2022-01-08] MEDS: Lidocaine 5% Patch TD SCH (02:23)
[2022-01-08] MEDS: Calcium Acetate 667 MG CAP PO SCH ×3 (08:22→16:23)
[2022-01-08] MEDS: Midodrine HCl 5 MG TAB PO SCH ×3 (08:22→20:18)
[2022-01-08] MEDS: Folic Acid 1 MG TAB PO SCH (08:22)
[2022-01-08] MEDS: Heparin 5,000 UNITS/ML VIAL SC SCH ×3 (08:22→20:18)
[2022-01-08] MEDS: Transdermal Patch Removal TOP SCH (14:20)
[2022-01-08] MEDS: HYDROcodone/Acetaminophen 5/325 mg Tablet PO PRN (22:33)
[2022-01-09] MEDS: Lidocaine 5% Patch TD SCH (01:53)
[2022-01-09] MEDS: HYDROcodone/Acetaminophen 5/325 mg Tablet PO PRN (05:11)
[2022-01-09 06:47] LABS: #Eosinphils 0.1 thou/uL (0.0-0.7); #Lymphocytes 1.8 thou/uL (1.20-3.40); #Monocytes 0.8 thou/uL (0.11-0.59); #Neutrophils 6.7 thou/uL (1.40-6.50); %Basophils 0.3 % (0.0-1.0); %Eosinophils 1.3 % (0.0-10.0); %Lymphocytes 18.9 % (21.0-51.0); %Monocytes 8.5 % (0.0-10.0); Hemoglobin 8.7 g/dL (14.0-18.0); Mean Corpuscular HGB CONC 30.7 g/dL (32.0-36.0); Mean Corpuscular Hemoglobin 34.4 pg (27.0-31.0); Mean Platelet Volume 6.1 fL (7.4-10.4); Platelet Count 423 thou/uL (130-400); RBC Distribution Width 12.7 % (11.5-14.5); Red Blood Cell (RBC) Count 2.52 mill/uL (4.70-6.10); White Blood Cell (WBC) Count 9.5 thou/uL (4.8-10.8)
[2022-01-09 07:06] LABS: Anion Gap 18 mmol/L (10-20); BUN (Urea Nitrogen) 28 mg/dL (8.4-25.7); Calc. Creatinine Clearance 19 mL/min (70-130); Calcium 9.3 mg/dL (7.8-10.44); Carbon Dioxide 28 mmol/L (23-31); Chloride 98 mmol/L (98-107); Glucose 103 mg/dL (83-110); Potassium 3.5 mmol/L (3.5-5.1); Sodium 140 mmol/L (136-145)
[2022-01-09] MEDS: Folic Acid 1 MG TAB PO SCH (08:58)
[2022-01-09] MEDS: Calcium Acetate 667 MG CAP PO SCH ×3 (08:58→16:15)
[2022-01-09] MEDS: Ascorbic Acid 500 mg Chewable Tablet PO SCH (08:58)
[2022-01-09] MEDS: Midodrine HCl 5 MG TAB PO SCH ×3 (08:58→20:14)
[2022-01-09] MEDS: Heparin 5,000 UNITS/ML VIAL SC SCH ×3 (08:58→20:14)
[2022-01-09] MEDS ORDERED: EPOETIN ALFA-EPBX (ESRD) 10,000 UNIT/ML VIAL SC SCH (10:00)
[2022-01-09] MEDS ORDERED: Epoetin (ESRD) 20,000 UNITS/ML SC SCH (12:30)
[2022-01-09] MEDS: Transdermal Patch Removal TOP SCH (16:16)
[2022-01-10] MEDS: Lidocaine 5% Patch TD SCH (02:06)
[2022-01-10] MEDS: Heparin 5,000 UNITS/ML VIAL SC SCH ×2 (08:56→14:16)
[2022-01-10] MEDS: Folic Acid 1 MG TAB PO SCH (08:56)
[2022-01-10] MEDS: Ascorbic Acid 500 mg Chewable Tablet PO SCH (08:56)
[2022-01-10] MEDS: Calcium Acetate 667 MG CAP PO SCH ×2 (08:56→12:39)
[2022-01-10] MEDS: Midodrine HCl 5 MG TAB PO SCH ×2 (08:56→14:16)
[2022-01-10 12:24] VITALS: BMI 27.5
[2022-01-10] MEDS: HYDROcodone/Acetaminophen 5/325 mg Tablet PO PRN (14:16)
[2022-01-10] MEDS: Transdermal Patch Removal TOP SCH (14:53)
[2022-01-10 18:15] VITALS: BP 101/54; TEMP 98.7
== END 2022-01-10 17:30 | DRG 871 ==
LOC: ERS 19:16 → CCU 21:27 → T4-B 01-08 13:21
PROVIDERS: ADMIT Family Medicine; ATTEND Family Medicine
PROC: 3E03329 Introduction of Other Anti-infective into Peripheral Vein, Percutaneous Approach (ICD-10-PCS; principal; 2021-12-31)
PROC: 3E033XZ Introduction of Vasopressor into Peripheral Vein, Percutaneous Approach (ICD-10-PCS; 2021-12-31)
PROC: 5A1D70Z Performance of Urinary Filtration, Intermittent, Less than 6 Hours Per Day (ICD-10-PCS; 2022-01-01)
DX: A41.9 Sepsis, unspecified organism (principal); Z20.822 Contact with and (suspected) exposure to COVID-19; Z23 Encounter for immunization; Z51.5 Encounter for palliative care; N18.6 End stage renal disease; R65.21 Severe sepsis with septic shock; G93.41 Metabolic encephalopathy; J96.01 Acute respiratory failure with hypoxia; J18.9 Pneumonia, unspecified organism; N30.00 Acute cystitis without hematuria; I50.32 Chronic diastolic (congestive) heart failure; I13.2 Hypertensive heart and chronic kidney disease with heart failure and with stage 5 chronic kidney disease, or end stage renal disease; D63.1 Anemia in chronic kidney disease; K59.09 Other constipation; I95.3 Hypotension of hemodialysis; Z99.2 Dependence on renal dialysis; Z88.6 Allergy status to analgesic agent; Z88.0 Allergy status to penicillin; Z88.8 Allergy status to other drugs, medicaments and biological substances; Z98.890 Other specified postprocedural states; Z79.899 Other long term (current) drug therapy; Z79.52 Long term (current) use of systemic steroids
CPT/HCPCS: 36415; 36416; 70450; 71045; 74176; 80048; 82140; 82533; 82553; 82607; 82746; 82805; 83605; 83735; 84145; 84443; 84484; 85025; 86850; 86900; 86901; 90471; 90732; 90935; 93005; 96361; 96365; 96367; G0009; G0257; J0692; J1644; J2185; J3370; J3490; J7120; Q4081; U0003; U0005